=== PATIENT | female | born 1960 | race Caucasian/White ===

== ENCOUNTER 2019-03-05 18:50 | Emergency (ER) | payer SELFPAY ==
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
== END 2019-03-05 19:33 | disposition home or self-care (01) ==
LOC: ER 18:50
DX: S52.501A Unspecified fracture of the lower end of right radius, initial encounter for closed fracture (principal); V49.9XXD Car occupant (driver) (passenger) injured in unspecified traffic accident, subsequent encounter
CPT/HCPCS: 99283